=== PATIENT | female | born 1995 | race African-American/Black ===

== ENCOUNTER 2024-01-29 00:26 | Emergency (ER) | payer SELFPAY ==
[2024-01-29 00:25] VITALS: BP 138/78; PULSE 81; RESP 16; TEMP 36.4; O2SAT 100
--- NOTE | 2024-01-29 00:58 | PC.NURSE ---
This RN spoke with pt in room and pt stated i don't want to hurt myself Pt was explained the process by the safety instruction police officer accompanying her and states I just want to get this warrant stuff over with Pt was asked twice more if she was wanting to hurt herself or anyone else and pt denied this. EDP made aware.
[2024-01-29 00:59] LABS: Basophils Percent Auto 0.4 % (0.2-1.2); Eosinophils Absolute Auto 0.2 K/mm3 (0-0.3); Eosinophils Percent Auto 2.3 % (0-4.4); Hematocrit 39.7 % (37.0-47.0); Hemoglobin 12.2 g/dL (12.0-15.0); Immature Granulocyte Absolute 0.02 K/mm3 (0.00-0.031); Immature Granulocyte Percent A 0.2 % (0-0.5); Lymphocytes Absolute Auto 1.99 K/mm3 (0.9-3.2); Lymphocytes Percent Auto 20.3 % (18.3-44.2); Mean Corpuscular HGB Conc 30.7 g/dl (32-36); Mean Corpuscular Hemoglobin 27.5 pg (26-34); Mean Corpuscular Volume 89.6 fl (80-100); Mean Platelet Volume 9.9 fl (7.4-10.4); Monocytes Absolute Auto 0.9 K/mm3 (0.1-0.6); Monocytes Percent Auto 9.1 % (2.6-8.5); Neutrophils Absolute Auto 6.7 K/mm3 (1.3-6.7); Neutrophils Percent Auto 67.7 % (45.5-73.1); Platelet Count Result 324 k/mm3 (150-375); Red Blood Count 4.43 M/mm3 (4.2-5.4); Red Cell Distribution Width 14.6 % (11.5-14.5); White Blood Count 9.8 K/mm3 (4.5-10.0)
[2024-01-29 01:06] LABS: Appearance Urine Cloudy (Clear); Bacteria Urine Rare /hpf; Bilirubin Urine Negative (Negative); Blood Urine Negative (Negative); Color Urine Yellow (Yellow); Glucose Urine UA Negative (Negative); Ketones Urine Negative (Negative); Leukocyte Esterase Ur 2+ LEU/UL (Negative); Nitrate Urine Negative (Negative); Non Pathogenic Casts 0-2; Protein Urine Negative (Negative); RBC Urine 0-2 /hpf (0-2); Specific Grav Ur 1.021 (1.001-1.035); Squamous Epithelial Cell Urine Occasional /hpf (Few); WBC Urine 21-50 /hpf (0-3)
[2024-01-29 01:07] LABS: Alanine Aminotransferase 24 U/L (6-35); Albumin Level 4.2 g/dL (3.5-5.1); Alkaline Phosphatase 59 U/L (38-126); Anion Gap 5 mmol/L (4-12); Aspartate Amino Transferase 29 U/L (14-36); Bilirubin,Total 0.4 mg/dL (0.2-1.3); Blood Urea Nitrogen 12 mg/dL (7-17); Calcium 9.4 mg/dL (8.4-10.2); Carbon Dioxide 26 mmol/L (22-30); Chloride 106 mmol/L (98-107); Estimated CRCL calculation 121 ml/min; Estimated Glomerular Filt Rate > 60; Glucose 98 mg/dL (65-110); Potassium 3.6 mmol/L (3.4-5.0); Sodium 137 mmol/L (137-145)
[2024-01-29 01:11] LABS: Add Urine Microscopic? YES
[2024-01-29 01:19] LABS: Amphetamine Screen Urine Negative (Negative); Barbiturate Screen Urine Negative (Negative); Benzodiazepines Screen Urine Negative (Negative); Cannabinoid Screen Urine Positive (Negative); Cocaine Screen Urine Negative (Negative); Methadone Screen Urine Negative (Negative); Opiate Screen Urine Negative (Negative); Phencyclidine Screen Urine Negative (Negative)
[2024-01-29 01:21] LABS: Ethanol < 10 mg/dL (<10)
[2024-01-29 01:34] LABS: Influenza A QL RT-PCR Negative (Negative); Influenza B QL RT-PCR Negative (Negative); RSV RNA, RT-PCR Negative (Negative); SARS-CoV-2 RNA PCR Negative (Negative)
--- NOTE | 2024-01-29 01:46 | ED.GENADULT ---
HPI - General Adult General Chief complaint: Psychiatric Symptoms Stated complaint: ANXIETY IN PD CUSTODY Time Seen by Provider: 01/29/24 00:36 History of Present Illness HPI narrative: Patient is a 28-year-old female who presents emergency department this evening via EMS due to an anxiety attack. Patient is currently in PD custody and was being taken to residential when she started to have a panic attack and requested to be brought here instead. Patient admits to history of anxiety and presents to the emergency department hysterical and hyperventilating. No additional symptoms or concerns at this time. Related Data Home Medications Medication Instructions Recorded Confirmed Abilify 01/29/24 Zoloft 01/29/24 fluoxetine 01/29/24 01/29/24 Allergies Allergy/AdvReac Type Severity Reaction Status Date / Time No Known Allergies Allergy Verified 01/29/24 00:31 Review of Systems Review of Systems: All systems are reviewed and are negative unless stated otherwise in the HPI. Exam Narrative: General: Alert, awake, afebrile, crying, hysterical, hyperventilating. HEENT: PERRL, no rhinorrhea, no post nasal drip, oropharynx clear. Cardiovascular: Regular rate and rhythm, no murmurs, rubs or gallops, no peripheral edema. Respiratory: Clear to auscultation bilaterally, no tachypnea, no wheezing, no rhonchi, no rubs, no respiratory distress. Abdomen: Soft, nontender, nondistended, no rebound, no guarding, no peritoneal signs. Musculoskeletal: No joint swelling or deformity, normal muscle tone. Skin: No rashes or petechia, no signs of infection. Psychiatric: Actively crying, hysterical, hyperventilating. Neurological: Alert and oriented to person, place, and time. Follows all commands. No focal deficits, speech is clear and fluent. Course Vital Signs Vital signs: Vital Signs Temperature 97.6 F 01/29/24 00:25 Pulse Rate 81 01/29/24 00:25 Respiratory Rate 16 01/29/24 00:25 Blood Pressure 138/78 01/29/24 00:25 Pulse Oximetry 100 01/29/24 00:25 Oxygen Delivery Room Air 01/29/24 00:25 Temperature 97.6 F 01/29/24 00:25 Pulse Rate 81 01/29/24 00:25 Respiratory Rate 16 01/29/24 00:25 Blood Pressure 138/78 01/29/24 00:25 Pulse Oximetry 100 01/29/24 00:25 Oxygen Delivery Room Air 01/29/24 00:25 Medical Decision Making MDM Narrative Medical decision making narrative: The patient was evaluated by myself in the emergency department. History is obtained from patient who is an independent historian and physical exam was performed. External medical records were reviewed at this time. IV was established and pertinent tests were ordered. Shortly after arriving to the ED department, patient did state that she was suicidal. Patient was informed that the warrant for her arrest is for failure to appear in court and she only needs to go to the police department to have a new court date provided. After patient understood this, she admitted that she is no longer suicidal and does not have any suicidal or homicidal ideations at this time. Patient wants to proceed with medical clearance so she can be discharged to police custody to take care of this matter. Laboratory results obtained revealing no acute process. Differential diagnosis considerations include acute anxiety reaction, depression, and panic attack. Comorbidities impacting this visit include history of anxiety. I have evaluated and discussed social determinants of health with the patient that could potentially impact subsequent diagnosis and treatment plans. On repeat assessment of the patient, reevaluation revealed that the patient is doing well and is in no acute distress. Patient symptoms have improved since she arrived to our emergency department. Repeat vital signs were all reviewed and noted to be stable. Differential diagnosis and treatment plan were discussed with the patient at bedside. Patient agrees with discussion a
== END 2024-01-29 03:30 ==
PROVIDERS: Emergency Provider Emergency Medicine
DX: F41.9 Anxiety disorder, unspecified (principal); Z11.52 Encounter for screening for COVID-19
CPT/HCPCS: 36415; 80053; 80307; 81001; 84443; 85025; 87086; 87637; 99284